=== PATIENT | female | born 1950 | race Caucasian/White ===

== ENCOUNTER 2016-07-16 11:14 | Emergency (ER) | payer MEDICARE ==
[~2016-07-16] VITALS: Ht 165.1 cm; Wt 70.0 kg
[2016-07-16 11:19] VITALS: BP_SYST 189; BP_SYST 229; BP_DIAS 109; BP_DIAS 121; PULSE 92; RESP 16; TEMP 97.8; O2SAT 95
[2016-07-16] MEDS ORDERED: CHOL400D2 PO (11:35)
[2016-07-16] MEDS ORDERED: CALCCHW9 CHEW (11:35)
[2016-07-16] MEDS ORDERED: ADVA100A INH (11:35)
[2016-07-16] MEDS ORDERED: FLUT1SPR9 EACH NARE (11:35)
[2016-07-16 11:43] VITALS: O2SAT 98
[2016-07-16] MEDS ORDERED: LORazepam 2 MG/ML VIAL IV PUSH ONE (11:45)
[2016-07-16] MEDS ORDERED: ASPIRIN 325 MG TAB PO ONE (11:45)
[2016-07-16 11:46] VITALS: BP 198/108; PULSE 67; RESP 21; O2SAT 98
--- NOTE | 2016-07-16 11:58 | PD ---
HPI Chief Complaint: Abdominal Pain Time Seen by Provider: 11:50 Travel History International Travel<30 days: No Contact w/Intl Traveler<30days: No Traveled to known affect area: No History of Present Illness HPI 66-year-old female that presents to the ED for evaluation of epigastric pain and nervousness. Per patient she's been having sensation of anxiety since this morning. Per patient and she was doing is watching the LOUNGE on her TV and she started feeling very anxious. She states that at the time she was more diaphoretic and tremulous than anything. This is what made the patient come here. She states that she had an episode like this about a year ago when she lost part of her vision in her right eye which went away after 30 minutes. Per patient she never went to see her doctor but she does follow with the [facility] for most of her care. She states that last year she had a full evaluation and was completely clear. She takes no medications. Today when she got to the hospital about 20 minutes ago she developed some severe epigastric pain with nausea. Per patient she's never had that before. She denies any history of heart disease. She takes no aspirin. Denies smoking but she does tell me that she drinks pretty frequently wisky and wine. She states that the epigastric pain is more like a discomfort than actual pain and is 4 out of 10. The patient is making him feel anxious. Patient is also diaphoretic. She is very anxious as well. She denies ever feeling like this before. She denies any actual vomiting. She denies any bowel movement or urinary issues. She denies any shortness of breath. No recent travel. No allergies to medication. She has not taken anything for this. Again she takes no medications. Nothing seems to make the symptoms better or worse. PFSH Past Medical History Asthma: Yes Diminished Hearing: No Respiratory: Yes (asthma) Influenza Vaccination: Yes ?: Not Social History Alcohol Use: Yes (whisky daily) Tobacco Use: No Substance Use: No Allergies-Medications (Allergen,Severity, Reaction): Coded Allergies: No Known Allergies (Unverified , 07/16/16) Reported Meds & Prescriptions Reported Meds & Active Scripts Active Reported Calcium 1200 (Calcium Carbonate-Vitamin D W/Minerals) 1,200-1,000 Mg-Unit Chew 1 Tab CHEW DAILY Vitamin D (Cholecalciferol) 400 Unit/Ml Drops 400 Units PO DAILY Flonase Allergy Relief Children Nasal Raymond (Fluticasone Nasal Raymond) 50 Mcg/ Act Raymond 1 Raymond EACH NARE DAILY 50 mcg/spray Advair Diskus Inh (Fluticasone-Salmeterol Inh) 100-50 Mcg/Blist Aer 1 Puff INH BID Rinse mouth after use. Review of Systems General / Constitutional: No: Fever, Chills, Weight Gain, Weight Loss, Other Eyes: No: Diploplia, Blurred Vision, Photophobia, Drainage, Redness, Foreign Body Sensation, Pain, Tearing, Blind Spots, Visual changes, Blindness, Other HENT: No: Headaches, Vertigo, Lightheadedness, Sore Throat, Rhinitis, Rhinorrhea, Congestion, Nosebleed, Neck Stiffness, Neck Pain, Masses, Gingival Bleeding, Dental Difficulties, Ear Discharge, Earache, Other Cardiovascular: Positive: Chest Pain or Discomfort, Diaphoresis, No: Palpitations, Irregular Rhythm, Tachycardia, Syncope, Dyspnea on exertion, Varicosities, Edema, Cyanosis, Varicosities, Phlebitis, Claudication, Other Respiratory: No: Cough, Shortness of Breath, Wheezing, Sneezing, Orthopnea, Hemoptysis, Stridor, Night Sweats, Pleuritic Pain, Other Gastrointestinal: Positive: Nausea, Abdominal Pain, No: Vomiting, Diarrhea, Hematemesis, Hematochezia, Constipation, Changes in Bowel Habits, Indigestion, Dysphagia, Loss of Appetite, Other Genitourinary: No: Urgency, Frequency, Dysuria, Nocturia, Hematuria, Decreased Urinary Output, Oliguria, Hesitancy, Dribbling, Incontinence, Pelvic Pain, Flank Pain, Dyspareunia, Discharge, Dysmenorrhea, Menorrhagia, Metorrhagia, Vaginal Bleeding, Other Musculoskeletal: No: Myalgias, Arthralgias, Limited ROM, Weakness, Cramping, Edema, Pain, Atrophy, Other Skin: No Rash, No Itching, No Dryness, No Lumps, No Hives, No Change in Pigmentation, No Change in nails, No Alopecia, No Lesions, No Breast Lumps, No Breast Tenderness, No Breast Swelling, No Other Neurologic: No: Weakness, Dizziness, Syncope, Focal Abnormalities, Coordination Problem, Tremor, Ataxia, Headache, Change in Mentation, Slurred Speech, Paresthesia, Incontinence, Seizures, Sensory Disturbance, Other Psychiatric: Positive: Anxiety, No: Depression, Suicidal Ideations, Disorder of Thought, Mood Disorder, Substance Abuse, Homicidal Ideation, Other Endocrine: No: Heat Intolerance, Cold Intolerance, Polyuria, Polydipsia, Other Hematologic/Lymphatic: No: Easy Bruising, Lymph Node Enlargement, Other Physical Exam Narrative GENERAL: SKIN: Warm and dry. HEAD: Atraumatic. Normocephalic. EYES: Pupils equal and round. No scleral icterus. No injection or drainage. ENT: No nasal bleeding or discharge. Mucous membranes pink and moist. Tongue is midline. No uvula deviation. NECK: Trachea midline. No JVD. CARDIOVASCULAR: Regular rate and rhythm. No murmurs, S3, S4. RESPIRATORY: No accessory muscle use. Clear to auscultation. Breath sounds equal bilaterally. GASTROINTESTINAL: Abdomen soft, non-tender, nondistended. Hepatic and splenic margins not palpable. MUSCULOSKELETAL: Extremities without clubbing, cyanosis, or edema. No obvious deformities. Full range of motion of the upper and lower extremities bilaterally. 2+ pulses bilaterally. NEUROLOGICAL: Awake and alert. No obvious cranial nerve deficits. Motor grossly within normal limits. Five out of 5 muscle strength in the arms and legs. Normal speech. PSYCHIATRIC: Appropriate mood and affect; insight and judgment normal. Data Data Last Documented VS Vital Signs Date Time Temp Pulse Resp B/P Pulse Ox O2 Delivery O2 Flow Rate FiO2 07/16/16 12:44 86 19 157/90 96 Nasal Cannula 2 07/16/16 11:19 97.8 Orders Electrocardiogram (07/16/16 11:17) Complete Blood Count With Diff (07/16/16 11:39) Comprehensive Metabolic Panel (07/16/16 11:39) Ckmb (Isoenzyme) Profile (07/16/16 11:39) Troponin I (07/16/16 11:39) Prothrombin Time / Inr (Pt) (07/16/16 11:39) Act Partial Throm Time (Ptt) (07/16/16 11:39) Lipase (07/16/16 11:39) Magnesium (Mg) (07/16/16 11:39) Thyroid Stimulating Hormone (07/16/16 11:39) Chest, Single Ap (07/16/16 11:39) Iv Access Insert/Monitor (07/16/16 11:39) Ecg Monitoring (07/16/16 11:39) Oximetry (07/16/16 11:39) Lorazepam Inj (Ativan Inj) (07/16/16 11:45) Aspirin (Aspirin) (07/16/16 11:45) Alcohol (Ethanol) (07/16/16 11:50) Hydralazine Inj (Apresoline Inj) (07/16/16 12:30) CKMB (07/16/16 11:50) CKMB% (07/16/16 11:50) Admit Order (Ed Use Only) (07/16/16 13:10) Labs Laboratory Tests Test 07/16/16 11:50 White Blood Count 4.6 TH/MM3 Red Blood Count 4.36 MIL/MM3 Hemoglobin 14.4 GM/DL Hematocrit 40.3 % Mean Corpuscular Volume 92.4 FL Mean Corpuscular Hemoglobin 33.0 PG Mean Corpuscular Hemoglobin 35.7 % Concent Red Cell Distribution Width 13.4 % Platelet Count 238 TH/MM3 Mean Platelet Volume 6.5 FL Neutrophils (%) (Auto) 44.3 % Lymphocytes (%) (Auto) 45.5 % Monocytes (%) (Auto) 9.6 % Eosinophils (%) (Auto) 0.4 % Basophils (%) (Auto) 0.2 % Neutrophils # (Auto) 2.0 TH/MM3 Lymphocytes # (Auto) 2.1 TH/MM3 Monocytes # (Auto) 0.4 TH/MM3 Eosinophils # (Auto) 0.0 TH/MM3 Basophils # (Auto) 0.0 TH/MM3 CBC Comment DIFF FINAL Differential Comment Prothrombin Time 10.1 SEC Prothromb Time International 0.9 RATIO Ratio Activated Partial 23.6 SEC Thromboplast Time Sodium Level 142 MEQ/L Potassium Level 3.7 MEQ/L Chloride Level 106 MEQ/L Carbon Dioxide Level 22.2 MEQ/L Anion Gap 14 MEQ/L Blood Urea Nitrogen 17 MG/DL Creatinine 0.82 MG/DL Estimat Glomerular Filtration 70 ML/MIN Rate Random Glucose 125 MG/DL Calcium Level 9.2 MG/DL Magnesium Level 2.0 MG/DL Total Bilirubin 1.1 MG/DL Aspartate Amino Transf 25 U/L (AST/SGOT) Alanine Aminotransferase 27 U/L (ALT/SGPT) Alkaline Phosphatase 58 U/L Total Creatine Kinase 146 U/L Creatine Kinase MB 1.1 NG/ML Troponin I LESS THAN 0.02 NG/ML Total Protein 7.2 GM/DL Albumin 4.1 GM/DL Lipase 142 U/L Thyroid Stimulating Hormone 2.620 uIU/ML 3rd Gen Ethyl Alcohol Level LESS THAN 3 MG/DL MDM Medical Decision Making Medical Screen Exam Complete: Yes Emergency Medical Condition: Yes Medical Record Reviewed: Yes Interpretation(s) EKG shows sinus rhythm with no sign of acute ischemia or arrhythmia read by me and attending. CBC & BMP Diagram 07/16/16 11:50 Troponin and CK-MB negative. Chest x-ray negative for acute disease. LFTs and lipase within normal limits. Differential Diagnosis Chest pain versus atypical chest pain versus epigastric pain versus gastritis versus pancreatitis versus NC versus an STEMI versus unstable angina versus angina versus anxiety Narrative Course 66-year-old female that presents to the ED for evaluation of epigastric pain with anxiety and diaphoresis. Patient was properly examined and was found to have signs and symptoms of unclear etiology at this time. She reports she does have the risk factor of age against her or cardiac cannot completely rule out cardiac disease secondary to where the pain and discomfort for are located. I do recommend cardiac workup as well as abdominal workup. Patient will be given Ativan for suspected maybe some anxiety related to this. Patient was given aspirin as well. Labs and imaging ordered. Patient and family agree with plan. Labs and imaging showed no sign of acute disease. Patient was reassessed and symptoms that appear to have improved. Per patient she feels improved. Because of patient's never having had a stress test and her history including age and hypertension recommendations for patient to be admitted to chest pain center for stress testing and cardiac workup through a heart disease. My attending agrees with this plan. This was offered to the patient and they were in agreement to pursue the chest pain center admission. Patient was admitted to the chest pain center. Dr. Garcia from chest pain center and evaluated the patient and reassure the patient does not appear to be cardiac and patient can be discharged. This was discussed in my attending Dr. Holcomb who agrees with plan. Patient will be discharged home with Norvasc and Jose Danieltaril. Told to follow up with PCP. See ED worsening symptoms. Family agree with plan. Procedures EKG Prior to Arrival: No Diagnosis Primary Impression: Chest pain in adult Additional Impression: Hypertension Qualified Code: I10 - Essential hypertension Admitting Information Admitting Physician Requests: Observation Patient Instructions: General Instructions Additional Instructions: Take medications as prescribed. Follow-up with PCP. See ED for any worsening symptoms. Med/Other Pt SpecificInfo: Prescription(s) given Disposition: 01 DISCHARGE HOME Condition: Stable Romeo Rodriguez Jul 16, 2016 11:58
[2016-07-16 12:18] LABS: BASOPHIL % 0.2 % (0.0-2.0); EOSINOPHIL % 0.4 % (0.0-4.0); HEMATOCRIT 40.3 % (35.0-46.0); HEMO FLAGS DIFF FINAL; LYMPH % 45.5 % (9.0-44.0); LYMPHOCYTE # 2.1 TH/MM3 (1.0-4.8); MEAN CELL VOLUME 92.4 FL (80.0-100.0); MEAN CORPUSCULAR HGB CONC 35.7 % (32.0-36.0); MONO % 9.6 % (0.0-8.0); NEUT % 44.3 % (16.0-70.0); PLATELET COUNT 238 TH/MM3 (150-450); RED BLOOD COUNT 4.36 MIL/MM3 (4.00-5.30); RED CELL DISTRIBUTION WIDTH 13.4 % (11.6-17.2); WHITE BLOOD COUNT 4.6 TH/MM3 (4.0-11.0)
[2016-07-16 12:29] LABS: APTT (PATIENT) 23.6 SEC (24.3-30.1); INTERNATIONAL NORMALIZED RATIO 0.9 RATIO; PROTHROMBIN TIME - PATIENT 10.1 SEC (9.8-11.6)
[2016-07-16] MEDS ORDERED: hydrALAZINE HCL 20 MG/ML VIAL IV PUSH ONE (12:30)
[2016-07-16 12:34] LABS: ANION GAP 14 MEQ/L (5-15); AST (GOT) 25 U/L (15-37); BICARBONATE 22.2 MEQ/L (21.0-32.0); BLOOD UREA NITROGEN 17 MG/DL (7-18); CHLORIDE 106 MEQ/L (98-107); GLOMERULAR FILTRATION RATE 70 ML/MIN (>89); POTASSIUM 3.7 MEQ/L (3.5-5.1); SODIUM (NA) 142 MEQ/L (136-145)
--- NOTE | 2016-07-16 12:36 | PD ---
Data Data Last Documented VS Vital Signs Date Time Temp Pulse Resp B/P Pulse Ox O2 Delivery O2 Flow Rate FiO2 07/16/16 12:44 86 19 157/90 96 Nasal Cannula 2 07/16/16 11:19 97.8 Orders Electrocardiogram (07/16/16 11:17) Complete Blood Count With Diff (07/16/16 11:39) Comprehensive Metabolic Panel (07/16/16 11:39) Ckmb (Isoenzyme) Profile (07/16/16 11:39) Troponin I (07/16/16 11:39) Prothrombin Time / Inr (Pt) (07/16/16 11:39) Act Partial Throm Time (Ptt) (07/16/16 11:39) Lipase (07/16/16 11:39) Magnesium (Mg) (07/16/16 11:39) Thyroid Stimulating Hormone (07/16/16 11:39) Chest, Single Ap (07/16/16 11:39) Iv Access Insert/Monitor (07/16/16 11:39) Ecg Monitoring (07/16/16 11:39) Oximetry (07/16/16 11:39) Lorazepam Inj (Ativan Inj) (07/16/16 11:45) Aspirin (Aspirin) (07/16/16 11:45) Alcohol (Ethanol) (07/16/16 11:50) Hydralazine Inj (Apresoline Inj) (07/16/16 12:30) CKMB (07/16/16 11:50) CKMB% (07/16/16 11:50) Labs Laboratory Tests Test 07/16/16 11:50 White Blood Count 4.6 TH/MM3 Red Blood Count 4.36 MIL/MM3 Hemoglobin 14.4 GM/DL Hematocrit 40.3 % Mean Corpuscular Volume 92.4 FL Mean Corpuscular Hemoglobin 33.0 PG Mean Corpuscular Hemoglobin 35.7 % Concent Red Cell Distribution Width 13.4 % Platelet Count 238 TH/MM3 Mean Platelet Volume 6.5 FL Neutrophils (%) (Auto) 44.3 % Lymphocytes (%) (Auto) 45.5 % Monocytes (%) (Auto) 9.6 % Eosinophils (%) (Auto) 0.4 % Basophils (%) (Auto) 0.2 % Neutrophils # (Auto) 2.0 TH/MM3 Lymphocytes # (Auto) 2.1 TH/MM3 Monocytes # (Auto) 0.4 TH/MM3 Eosinophils # (Auto) 0.0 TH/MM3 Basophils # (Auto) 0.0 TH/MM3 CBC Comment DIFF FINAL Differential Comment Prothrombin Time 10.1 SEC Prothromb Time International 0.9 RATIO Ratio Activated Partial 23.6 SEC Thromboplast Time Sodium Level 142 MEQ/L Potassium Level 3.7 MEQ/L Chloride Level 106 MEQ/L Carbon Dioxide Level 22.2 MEQ/L Anion Gap 14 MEQ/L Blood Urea Nitrogen 17 MG/DL Creatinine 0.82 MG/DL Estimat Glomerular Filtration 70 ML/MIN Rate Random Glucose 125 MG/DL Calcium Level 9.2 MG/DL Magnesium Level 2.0 MG/DL Total Bilirubin 1.1 MG/DL Aspartate Amino Transf 25 U/L (AST/SGOT) Alanine Aminotransferase 27 U/L (ALT/SGPT) Alkaline Phosphatase 58 U/L Total Creatine Kinase 146 U/L Creatine Kinase MB 1.1 NG/ML Troponin I LESS THAN 0.02 NG/ML Total Protein 7.2 GM/DL Albumin 4.1 GM/DL Lipase 142 U/L Thyroid Stimulating Hormone 2.620 uIU/ML 3rd Gen Ethyl Alcohol Level LESS THAN 3 MG/DL MDM Supervised Visit with [facility]LEY: Yes Narrative Course I, Dr. Rodriguez, have reviewed the advance practice practioner's documentation and am in agreement, met with the patient face to face, made the diagnosis, and the medical decision making was done by me. *My assessment and Findings 66-year-old female with history of anxiety here with complaint of high blood pressure, shaking. Patient states that she has been having increasing anxiety and high blood pressure over the course of the last several days. Patient presented to the ER for this and in route developed epigastric abdominal discomfort that radiated slightly into the chest. Admits associated shortness of breath, nausea but no vomiting. No history of gastritis , pancreatitis or hepatobiliary pathology. She does drink alcohol frequently, daily. She denies any history of cardiac disease. She is not currently being treated for her hypertension. On exam patient is anxious, hypertensive. No reproducible abdominal tenderness to palpation. Differential includes ACS, gastritis, pancreatitis, hepatobiliary pathology, anxiety, hypertension, accelerated hypertension. Twelve-lead EKG and laboratory workup unremarkable. Given aspirin. Blood pressure normalized. Given her age, gender will admit for serial cardiac enzymes and potentially provocative testing. Evangelina Rodriguez MD Jul 16, 2016 12:36
--- NOTE | 2016-07-16 12:39 | RADRPT ---
EXAM DATE/TIME: 07/16/2016 11:42 [facility] COMPARISON: No previous studies available for comparison. INDICATIONS : Chest pain and hypertension. MEDICAL HISTORY : None. SURGICAL HISTORY : Fusion, cervical. ENCOUNTER: Initial ACUITY: 1 day PAIN SCORE: 0/10 LOCATION: Bilateral lower chest FINDINGS: Single AP view of the chest. Cervical spine hardware noted. The lungs are clear. Cardiomediastinal si lhouette within normal limits. No evidence of pleural effusion or pneumothorax. CONCLUSION: No acute cardiopulmonary disease identified. Tim Otto MD on July 16, 2016 at 12:38 Board Certified Radiologist. This report was verified electronically.
[2016-07-16 12:43] LABS: ALKALINE PHOSPHATASE 58 U/L (45-117); ALT (GPT) 27 U/L (10-53); CREATINE KINASE 146 U/L (26-192); TOTAL BILIRUBIN ADULT 1.1 MG/DL (0.2-1.0)
[2016-07-16 12:44] VITALS: BP 157/90; PULSE 86; RESP 19; O2SAT 96
[2016-07-16 12:58] LABS: CKMB 1.1 NG/ML (0.5-3.6)
[2016-07-16 14:00] VITALS: BP 147/93; PULSE 86; RESP 19; O2SAT 98
[2016-07-16] MEDS ORDERED: VIST50CA PO (14:34)
[2016-07-16] MEDS ORDERED: AMLO5 PO (14:34)
[2016-07-16 15:06] VITALS: BP 138/88
--- NOTE | 2016-07-17 14:39 | EKG ---
Date Performed: 07/16/2016 Time Performed: 11:32:50 PTAGE: 66 years EKG: Sinus rhythm POSSIBLE RIGHT VENTRICULAR CONDUCTION DELAY BORDERLINE ECG NO PREVIOUS TRACING DOCTOR: Aime Harding Interpretating Date/Time 07/17/2016 14:33:46
== END 2016-07-16 15:07 | disposition home or self-care (01) ==
LOC: NEPC 11:14 → UNDOADMOB 13:12 → NEDA 13:12 → NEPC 15:07 → UNDODISOB 15:07 → UNDODEPER 07-18 02:06
DX: I10 Essential (primary) hypertension (principal); F41.9 Anxiety disorder, unspecified; J45.909 Unspecified asthma, uncomplicated; Z79.899 Other long term (current) drug therapy
CPT/HCPCS: 71010; 80053; 80320; 82550; 82552; 83690; 83735; 84443; 84484; 85025; 85610; 85730; 93005; 96374; 99285; J2060